=== PATIENT | male | born 1970 | race Caucasian/White ===

== ENCOUNTER 2016-07-29 08:28 | Emergency (ER) | payer OTHER ==
[2016-07-29 08:49] VITALS: BP 171/94
--- NOTE | 2016-07-29 09:13 | UC ---
Respiratory Complaint HPI - HPI Summary HPI Summary: The patient comes in today for: 1. Cough: Onset: 5 days ago. Palliative/provocative: Nyquil helps. Quality: [place]: Lungs. Severity: (back): 3/10 Time: Cough comes and goes. Associated symptoms: Chest pain: None. Dyspnea: "A little labored, my nose is full." Wheezing: Present. Back pain: Present--from coughing? FEver: None. Inhalers: He denies any inhaler use. Cough production: green/yellow Rhinitis: Clear. * - History of Current Complaint Chief Complaint: UCRespiratory Stated Complaint: COUGH CONGESTION Time Seen by Provider: 07/29/16 09:08 Hx Obtained From: Patient - Allergies/Home Medications Allergies/Adverse Reactions: Allergies Allergy/AdvReac Type Severity Reaction Status Date / Time Latex Allergy Swelling Verified 07/29/16 08:48 Home Medications: Home Medications Dextromethorphan-Phenylephrine [Vicks Dayquil Cold & Flu 10-5-325 mg/15Ml] 1 liq PO DAILY PRN 07/29/16 [History Confirmed 07/29/16] Vboqtbidutwzl-[id number] [Nyquil Severe Cold/Flu 5-6.25-10-325 mg/15Ml] 1 dose PO ONCE PRN 07/29/16 [History Confirmed 07/29/16] PMH/Surg Hx/FS Hx/Imm Hx Previously Healthy: Yes Endocrine History Of: Denies: Diabetes, Thyroid Disease, Hyperthyroidism, Hypothyroidism, Dyslipidemia Cardiovascular History Of: Denies: Cardiac Disorders, Hypertension, Pacemaker/ICD, Myocardial Infarction , Congestive Heart Failure, Atrial Fibrillation, Deep Vein Thrombosis, Bleeding Disorders Respiratory History Of: Denies: COPD, Asthma, Bronchitis, Pneumonia, Pulmonary Embolism GI/ History Of: Denies: Gastroesophageal Reflux, Ulcer, Gastrointestinal Bleed, Gall Bladder Disease, Kidney Stones, Diverticulitis, Renal Disease, Urosepsis Neurological History Of: Denies: TIA, CVA, Dementia, Seizures, Migraine Psychological History Of: Denies: Anxiety, Depression, Bipolar Disorder, Schizophrenia, Post Traumatic Stress Disorder Cancer History Of: Denies: Lung Cancer, Colorectal Cancer, Breast Cancer, Prostate Cancer, Cervical Cancer Other History Of: Negative For: HIV, Hepatitis B, Hepatitis C, Anticoagulant Therapy - Surgical History Surgical History: Yes Surgery Procedure, Year, and Place: cholecystectomy ~2014 [facility] - Family History Known Family History: Negative: Cardiac Disease, Hypertension - Social History Occupation: Employed Full-time Alcohol Use: Occasionally Substance Use Type: None Smoking Status (MU): Heavy Every Day Tobacco Smoker Review of Systems Constitutional: Negative Skin: Negative Eyes: Negative ENT: Negative Respiratory: Cough Cardiovascular: Negative Gastrointestinal: Negative Genitourinary: Negative All Other Systems Reviewed And Are Negative: Yes Physical Exam Triage Information Reviewed: Yes Appearance: Well-Appearing, No Pain Distress, Well-Nourished Vital Signs: Initial Vital Signs Temp 98.5 F 07/29/16 08:40 Pulse 84 07/29/16 08:40 Resp 18 07/29/16 08:40 BP 171/94 07/29/16 08:40 Pulse Ox 96 07/29/16 08:40 Vital Signs Reviewed: Yes Eyes: Positive: Conjunctiva Clear. Negative: Discharge ENT: Positive: Hearing grossly normal. Negative: Pharyngeal erythema, Nasal congestion, Nasal drainage, TM bulging, TM dull, TM red, Tonsillar swelling, Tonsillar exudate Dental: Negative: Percussion Tenderness @, Gross Decay/Caries @ Neck: Positive: Supple, Nontender, No Lymphadenopathy. Negative: Nuchal Rigidity Respiratory: Positive: Chest non-tender, No respiratory distress, No accessory muscle use, Rhonchi, Wheezing. Negative: Lungs clear, Crackles Cardiovascular: Positive: RRR, No Murmur Abdomen Description: Positive: Nontender, No Organomegaly, Soft. Negative: Distended, Guarding Musculoskeletal: Positive: Strength Intact, ROM Intact Neurological: Positive: Alert, Muscle Tone Normal Psychological: Positive: Age Appropriate Behavior, Consolable Skin: Negative: rashes, breakdown UC Diagnostic Evaluation - Laboratory O2 Sat by Pulse Oximetry: 96 Respiratory Course/Dx - Differential Dx/Diagnosis Differential Diagnosis/HQI/PQRI: Bronchitis, Laryngitis, Sinusitis Provider Diagnoses: Bronchitis. Bronchospasm. Discharge - Discharge Plan Condition: Stable Disposition: HOME Patient Education Materials: Acute Bronchitis (ED), Bronchospasm (ED) Referrals: NOEMI Martinez [Primary Care Provider] - 1 Week (Please see your primary care provider in about a week. If you don't have a primary care provider, please reference the included sheet of local provider. If you get worse, please be seen sooner.)
== END 2016-07-29 09:40 | disposition home or self-care (01) ==
LOC: UCCORT 08:28
DX: J20.9 Acute bronchitis, unspecified (principal); Z90.49 Acquired absence of other specified parts of digestive tract; F17.210 Nicotine dependence, cigarettes, uncomplicated
CPT/HCPCS: 99202; G0463

== ENCOUNTER 2016-07-31 10:11 | Emergency (ER) | payer OTHER ==
[2016-07-31 10:28] VITALS: BP 133/78
[2016-07-31] MEDS ORDERED: predniSONE TAB* 20 MG PO ONE (10:46)
[2016-07-31] MEDS ORDERED: Albuterol/Ipratropium NEB.SOL* Albuterol 2.5 MG/Ipratropium 0.5 MG 3 ML INH ONE (10:47)
--- NOTE | 2016-07-31 10:47 | UC ---
Respiratory Complaint HPI - HPI Summary HPI Summary: worsening cough and chest congestion over the past 5 days - History of Current Complaint Chief Complaint: UCRespiratory Stated Complaint: RE CK/COUGH, CONGESTION Time Seen by Provider: 07/31/16 10:36 Hx Obtained From: Patient Onset/Duration: Gradual Onset, Lasting Days - 5, Still Present, Worse Since - past 2 days Timing: Constant Severity Initially: Mild Severity Currently: Moderate Pain Intensity: 5 Pain Scale Used: 0-10 Numeric Character: Cough: Productive Aggravating Factors: Deep Breaths, Recumbent Position Alleviating Factors: Nothing Associated Signs And Symptoms: Positive: Dyspnea, Pleuritic Chest Pain, Wheezing , URI - Allergies/Home Medications Allergies/Adverse Reactions: Allergies Allergy/AdvReac Type Severity Reaction Status Date / Time Latex Allergy Swelling Verified 07/31/16 10:20 PMH/Surg Hx/FS Hx/Imm Hx Previously Healthy: Yes Endocrine History Of: Denies: Diabetes, Thyroid Disease, Hyperthyroidism, Hypothyroidism, Dyslipidemia Cardiovascular History Of: Denies: Cardiac Disorders, Hypertension, Pacemaker/ICD, Myocardial Infarction , Congestive Heart Failure, Atrial Fibrillation, Deep Vein Thrombosis, Bleeding Disorders Respiratory History Of: Denies: COPD, Asthma, Bronchitis, Pneumonia, Pulmonary Embolism GI/ History Of: Denies: Gastroesophageal Reflux, Ulcer, Gastrointestinal Bleed, Gall Bladder Disease, Kidney Stones, Diverticulitis, Renal Disease, Urosepsis Neurological History Of: Denies: TIA, CVA, Dementia, Seizures, Migraine Psychological History Of: Denies: Anxiety, Depression, Bipolar Disorder, Schizophrenia, Post Traumatic Stress Disorder Cancer History Of: Denies: Lung Cancer, Colorectal Cancer, Breast Cancer, Prostate Cancer, Cervical Cancer Other History Of: Negative For: HIV, Hepatitis B, Hepatitis C, Anticoagulant Therapy - Surgical History Surgical History: Yes Surgery Procedure, Year, and Place: cholecystectomy ~2014 [facility] - Family History Known Family History: Negative: Cardiac Disease, Hypertension - Social History Occupation: Employed Full-time Lives: With Family Alcohol Use: Occasionally Substance Use Type: None Smoking Status (MU): Heavy Every Day Tobacco Smoker Type: Cigarettes Amount Used/How Often: 1/2 PPD Length of Time of Smoking/Using Tobacco: 20 years Have You Smoked in the Last Year: Yes Household Exposure Type: Cigarettes Cessation Counseling: Counseled 10+ Min Review of Systems Constitutional: Negative Skin: Negative Eyes: Negative ENT: Negative Respiratory: Shortness Of Breath, Cough Cardiovascular: Negative Gastrointestinal: Negative Genitourinary: Negative Motor: Negative Neurovascular: Negative Musculoskeletal: Negative Neurological: Negative Psychological: Negative All Other Systems Reviewed And Are Negative: Yes Physical Exam Triage Information Reviewed: Yes Appearance: Well-Appearing, No Pain Distress, Well-Nourished Vital Signs: Initial Vital Signs Temp 97.9 F 07/31/16 10:21 Pulse 93 07/31/16 10:21 Resp 20 07/31/16 10:21 BP 133/78 07/31/16 10:21 Pulse Ox 94 07/31/16 10:21 Vital Signs Reviewed: Yes Eye Exam: Normal Eyes: Positive: Conjunctiva Clear ENT Exam: Normal ENT: Positive: Normal ENT inspection, Hearing grossly normal, Pharynx normal, TMs normal. Negative: Nasal congestion, Nasal drainage, Tonsillar swelling, Tonsillar exudate, Trismus, Other: Dental Exam: Normal Neck exam: Normal Neck: Positive: Supple, Nontender, No Lymphadenopathy Respiratory Exam: Normal Respiratory: Positive: Chest non-tender, No respiratory distress, No accessory muscle use, Decreased breath sounds, Wheezing Cardiovascular Exam: Normal Cardiovascular: Positive: RRR, No Murmur, Pulses Normal, Brisk Capillary Refill Musculoskeletal Exam: Normal Musculoskeletal: Positive: Strength Intact, ROM Intact, No Edema Neurological Exam: Normal Neurological: Positive: Alert, Muscle Tone Normal, Fatigued Psychological Exam: Normal Skin Exam: Normal UC Diagnostic Evaluation - Laboratory O2 Sat by Pulse Oximetry: 94 Re-Evaluation - Re-Evaluation First Eval Change: Improved - Sats up to 95-96 % increase air movement, wheeze continues, pt reports feeling like he is able to get better air in to lungs Respiratory Course/Dx - Course Course Of Treatment: aerochamber for MDI, Nebulized albuterol, prednisone, finish Zithromax, increase fluids, smoking cesation support education and resources provided - Differential Dx/Diagnosis Differential Diagnosis/HQI/PQRI: Asthma, Bronchitis, Exacerbation Of COPD, Laryngitis, Lower Resp Infection, Sinusitis, Tuberculosis Provider Diagnoses: Acute Bronchospasm, nicotine dependant Discharge - Discharge Plan Condition: Stable Disposition: HOME Prescriptions: Albuterol 2.5MG/3ML (0.083%)* [Ventolin 2.5 MG/3 ML NEB.GEOFFREY*] 2.5 mg INH Q6H PRN #1 box PRN Reason: cough wheeze sob predniSONE TAB* [Deltasone TAB*] 10 mg PO DAILY #20 tab Patient Education Materials: How to Stop Smoking (ED), Cigarette Smoking and Your Health (GEN), How to Use a Metered-Dose Inhaler (ED), How to Use a Nebulizer (ED), Secondhand Smoke Exposure in Children (ED), Bronchospasm (ED) Forms: *Work Release Referrals: Topher Carlisle MD [Medical Doctor] - 1 Week
== END 2016-07-31 11:44 | disposition home or self-care (01) ==
LOC: UCCORT 10:11
DX: J98.01 Acute bronchospasm (principal); Z90.49 Acquired absence of other specified parts of digestive tract; F17.210 Nicotine dependence, cigarettes, uncomplicated; Z71.6 Tobacco abuse counseling
CPT/HCPCS: 99212; A9270-GY; G0463; J7512

== ENCOUNTER 2017-03-25 20:17 | Emergency (ER) | payer OTHER ==
[2017-03-25 20:31] VITALS: BP 144/91
--- NOTE | 2017-03-25 21:43 | UC ---
Abdominal Pain Male HPI - HPI Summary HPI Summary: 46 year old male noted when getting out of car this afternoon sharp pain in belly button area with new bulge seen. + tender to touch, no N/V/ bowel changes. no prior symptoms, h/o annabella, open, attempt lap prior. no h/o herniation - History of Current Complaint Chief Complaint: UCAbdominalPain Stated Complaint: BELLY [place]TON Time Seen by Provider: 03/25/17 21:18 Hx Obtained From: Patient Onset/Duration: Sudden Onset, Lasting Hours Timing: Constant Severity Initially: Moderate Severity Currently: Mild - Allergies/Home Medications Allergies/Adverse Reactions: Allergies Allergy/AdvReac Type Severity Reaction Status Date / Time Latex Allergy Swelling Verified 03/25/17 20:31 Home Medications: Home Medications Varenicline Tartrate [Chantix Starting M... 0.5 mg X 11 & 1 mg X 42] 1 toyin PO DAILY 03/25/17 [History Confirmed 03/25/17] PMH/Surg Hx/FS Hx/Imm Hx Previously Healthy: Yes Other History Of: Negative For: HIV, Hepatitis B, Hepatitis C, Anticoagulant Therapy - Surgical History Surgical History: Yes Surgery Procedure, Year, and Place: cholecystectomy ~2013 [facility] - Family History Known Family History: Negative: Cardiac Disease, Hypertension - Social History Alcohol Use: Occasionally Substance Use Type: None Smoking Status (MU): Heavy Every Day Tobacco Smoker Type: Cigarettes Amount Used/How Often: 1/2 PPD Length of Time of Smoking/Using Tobacco: 20 years Have You Smoked in the Last Year: Yes Household Exposure Type: Cigarettes Review of Systems Gastrointestinal: Abdominal Pain Is Patient Immunocompromised?: No All Other Systems Reviewed And Are Negative: Yes Physical Exam Triage Information Reviewed: Yes Appearance: Well-Appearing, No Pain Distress, Well-Nourished Vital Signs: Initial Vital Signs Temp 98.1 F 03/25/17 20:27 Pulse 88 03/25/17 20:27 Resp 16 03/25/17 20:27 BP 144/91 03/25/17 20:27 Pulse Ox 98 03/25/17 20:27 Eye Exam: Normal Abdomen Description: Positive: No Organomegaly, Soft, Other: - obese, tender over umbilical region, possible defect noted over superior umbilicus, tender to area, possible bulge, easily reducable without complication, no bowel noise over bulge, no erythema. Negative: Bruit, Distended, Guarding Bowel Sounds: Positive: Present Abd Pain Male Course/Dx - Course Course Of Treatment: discussed with patient, follow up with general surgeon/ PCP within 1 week, discuss bowel strangulation s/s, - Differential Dx/Clinical Impression Provider Diagnoses: umbilical herniation Discharge - Discharge Plan Condition: Good Disposition: HOME Patient Education Materials: Umbilical Hernia (ED) Referrals: Topher Carlisle MD [Primary Care Provider] - Additional Instructions: - Follow up with primary physician or general surgeon within 1-2 weeks - Report to ER with increased abdominal pain, bulge that cannot be reduced by lying down or gently pushing, no bowel movements, nausea/ vomiting - Avoid constipation- increase fluid intake, fiber - no heavy lifting, pushing pulling > 30 pounds
== END 2017-03-25 21:45 | disposition home or self-care (01) ==
LOC: UCCORT 20:17
DX: K42.9 Umbilical hernia without obstruction or gangrene (principal); Z91.040 Latex allergy status; F17.210 Nicotine dependence, cigarettes, uncomplicated
CPT/HCPCS: 99211; G0463

== ENCOUNTER 2017-10-18 14:17 | Emergency (ER) | payer OTHER ==
[2017-10-18] MEDS ORDERED: Dexamethasone TAB* 4 MG PO ONE (15:37)
[2017-10-18] MEDS ORDERED: Ibuprofen ADULT LIQ* 600 MG/30 ML UDC PO ONE (15:38)
--- NOTE | 2017-10-18 15:58 | UC ---
UC General HPI - HPI Summary HPI Summary: Patient is complaining of 2-3 day history of sore throat, swollen tonsils, headache along with fever and chills. He states that his joints were aching but that is essentially gone. - History of Current Complaint Chief Complaint: UCHeadache Stated Complaint: THROAT COMPLAINT Time Seen by Provider: 10/18/17 15:25 Hx Obtained From: Patient Onset/Duration: Gradual Onset Timing: Constant Pain Intensity: 6 - Allergy/Home Medications Allergies/Adverse Reactions: Allergies Allergy/AdvReac Type Severity Reaction Status Date / Time latex Allergy Swelling Verified 10/18/17 15:14 Home Medications: Home Medications Acetaminophen [Acetaminophen Extra Strength] 1,500 mg PO ONCE PRN 10/18/17 [ History Confirmed 10/18/17] Dextromethorphn/Acetaminoph/Cp [Vicks Nyquil Cold & Flu N] 1 liq PO ONCE PRN [History Confirmed 10/18/17] Ibuprofen TAB* [Motrin TAB* 400 MG] 400 mg PO PC PRN 10/18/17 [History Confirmed 10/18/17] PMH/Surg Hx/FS Hx/Imm Hx Previously Healthy: Yes Other History Of: Negative For: HIV, Hepatitis B, Hepatitis C, Anticoagulant Therapy - Surgical History Surgical History: Yes Surgery Procedure, Year, and Place: cholecystectomy ~[facility] - Family History Known Family History: Negative: Cardiac Disease, Hypertension - Social History Occupation: Employed Full-time Lives: With Family Alcohol Use: Occasionally Substance Use Type: None Smoking Status (MU): Former Smoker Type: Cigarettes Amount Used/How Often: 1/2 PPD Length of Time of Smoking/Using Tobacco: 20 years Have You Smoked in the Last Year: Yes - 03/2017 Household Exposure Type: Cigarettes - Immunization History Vaccination Up to Date: Yes Review of Systems Constitutional: Fever, Chills Skin: Negative Eyes: Negative ENT: Sore Throat Respiratory: Negative Cardiovascular: Negative Gastrointestinal: Negative Genitourinary: Negative Motor: Negative Neurovascular: Negative Musculoskeletal: Arthralgia Neurological: Headache Psychological: Negative Is Patient Immunocompromised?: No All Other Systems Reviewed And Are Negative: Yes Physical Exam Triage Information Reviewed: Yes Appearance: Well-Appearing Vital Signs: Initial Vital Signs Temp 99.1 F 10/18/17 15:02 Pulse 116 10/18/17 15:02 Resp 18 10/18/17 15:02 BP 134/101 10/18/17 15:02 Pulse Ox 97 10/18/17 15:02 Vital Signs Reviewed: Yes Eyes: Positive: Conjunctiva Clear ENT: Positive: Pharyngeal erythema, TMs normal, Tonsillar swelling, Tonsillar exudate, Uvula midline. Negative: Nasal congestion, Nasal drainage, Trismus, Muffled voice, Hoarse voice Neck: Positive: Supple, Tenderness @ - peritonsilar nodes with tenderness. Respiratory: Positive: Lungs clear, Normal breath sounds Cardiovascular: Positive: RRR, No Murmur Abdomen Description: Positive: Nontender, No Organomegaly, Soft, Distended, Guarding Bowel Sounds: Positive: Present Musculoskeletal: Positive: ROM Intact, No Edema Neurological: Positive: Alert Psychological: Positive: Age Appropriate Behavior Skin Exam: Normal Course/Dx - Course Course Of Treatment: non toxic and no concern for peritonsiolar abscess. + strep throat. will repeat BP, no hx HTN. Repeat BP is WNL. - Differential Dx - Multi-Symptom Provider Diagnoses: strep throat Discharge - Sign-Out/Discharge Documenting (check all that apply): Discharge/Admit/Transfer - Discharge Plan Condition: Stable Disposition: HOME Prescriptions: Amoxicillin PO (*) [Amoxicillin 875 MG (*)] 875 mg PO BID #20 tab Patient Education Materials: Strep Throat (DC) Referrals: Topher Carlisle MD [Primary Care Provider] - 5 Days - Billing Disposition and Condition Condition: STABLE Disposition: Home
[2017-10-18 16:08] VITALS: BP 117/74
== END 2017-10-18 16:11 | disposition home or self-care (01) ==
LOC: UCCORT 14:17
DX: J02.0 Streptococcal pharyngitis (principal); F17.210 Nicotine dependence, cigarettes, uncomplicated
CPT/HCPCS: 87651; 99212; A9270-GY; G0463; J8540

== ENCOUNTER 2017-11-23 13:34 | Emergency (ER) | payer OTHER ==
[2017-11-23 14:04] VITALS: BP 129/93
--- NOTE | 2017-11-23 14:42 | UC ---
Skin Complaint HPI - HPI Summary HPI Summary: patient was clearing brus, next day had blistered rash on arm and right earlobe - History of Current Complaint Chief Complaint: UCSkin Time Seen by Provider: 11/23/17 14:18 Stated Complaint: SKIN COMPLAINT Hx Obtained From: Patient Onset/Duration: Sudden Onset Timing: Constant Onset Severity: Mild Current Severity: Moderate Pain Intensity: 0 Location: Diffuse Character: Pruritus, Raised, Painful - Allergy/Home Medications Allergies/Adverse Reactions: Allergies Allergy/AdvReac Type Severity Reaction Status Date / Time latex Allergy Swelling Verified 11/23/17 13:57 Review of Systems Constitutional: Negative Skin: Rash Eyes: Negative ENT: Negative Respiratory: Negative Cardiovascular: Negative Gastrointestinal: Negative Genitourinary: Negative Motor: Negative Neurovascular: Negative Musculoskeletal: Negative Neurological: Negative Psychological: Negative Is Patient Immunocompromised?: No All Other Systems Reviewed And Are Negative: Yes PMH/Surg Hx/FS Hx/Imm Hx Previously Healthy: Yes Other History Of: Negative For: HIV, Hepatitis B, Hepatitis C, Anticoagulant Therapy - Surgical History Surgical History: Yes Surgery Procedure, Year, and Place: cholecystectomy ~2013 [facility] - Family History Known Family History: Negative: Cardiac Disease, Hypertension - Social History Alcohol Use: Rare Substance Use Type: None Smoking Status (MU): Current Some Day Smoker Type: Cigarettes Amount Used/How Often: 2 cig/weekly Length of Time of Smoking/Using Tobacco: 20 years Have You Smoked in the Last Year: Yes - 03/2017 Household Exposure Type: Cigarettes - Immunization History Vaccination Up to Date: Yes Physical Exam Triage Information Reviewed: Yes Appearance: Well-Appearing, Well-Nourished, Pain Distress Vital Signs: Initial Vital Signs Temp 97.9 F 11/23/17 13:58 Pulse 104 11/23/17 13:58 Resp 20 11/23/17 13:58 BP 129/93 11/23/17 13:58 Pulse Ox 98 11/23/17 13:58 Eye Exam: Normal ENT Exam: Normal Dental Exam: Normal Respiratory Exam: Normal Respiratory: Positive: Chest non-tender, Lungs clear, Normal breath sounds Cardiovascular Exam: Normal Cardiovascular: Positive: RRR, No Murmur, Pulses Normal Abdominal Exam: Normal Abdomen Description: Positive: Nontender, No Organomegaly, Soft Bowel Sounds: Positive: Present Musculoskeletal Exam: Normal Neurological Exam: Normal Psychological Exam: Normal Skin: Positive: significant lesion(s) - multiple blisters, draining clear fluid , from wrist to shoulder, and on earlobe Course/Dx - Course Course Of Treatment: hx obtained, exam performed ,meds reviewed, treated for poisionivy - Differential Diagnoses - Skin Complaint Differential Diagnoses: Allergic Reaction, Cellulitis, Contact Dermatitis, Poison Maggie, Poison [place] - Diagnoses Provider Diagnoses: poison maggie Discharge - Sign-Out/Discharge Documenting (check all that apply): Patient Departure - Discharge Plan Condition: Stable Disposition: HOME Prescriptions: predniSONE [Prednisone 20 MG TAB] 20 mg PO DAILY #18 tablet Triamcinolone 0.1% OINT(NF) [Kenalog 0.1% OINT(NF)] 1 applic .SEE ORDER BID #60 gm Patient Education Materials: Poison Maggie (ED) Referrals: Topher Carlisle MD [Primary Care Provider] - Additional Instructions: 1. take the medication as prescribed. 2. keeparea covered until blisters dry up 3. follow up if you get a fever, purulent drainage, increased swelling of redness of the arm. - Billing Disposition and Condition Condition: STABLE Disposition: Home
== END 2017-11-23 14:51 | disposition home or self-care (01) ==
LOC: UCCORT 13:34
DX: L23.7 Allergic contact dermatitis due to plants, except food (principal); T63.791A Toxic effect of contact with other venomous plant, accidental (unintentional), initial encounter; Y92.9 Unspecified place or not applicable; F17.210 Nicotine dependence, cigarettes, uncomplicated
CPT/HCPCS: 99212; G0463

== ENCOUNTER 2018-02-17 09:26 | Emergency (ER) | payer OTHER ==
[2018-02-17 09:49] VITALS: BP 142/84
--- NOTE | 2018-02-17 10:03 | UC ---
Eye Complaint HPI - HPI Summary HPI Summary: right eye pain x 1 day Pain and swelling of the right lower eyelid , tender to touch , feels a bump under the right lower eyelid no change in vision , no eye discharge - History of Current Complaint Chief Complaint: UCEye Stated Complaint: RIGHT EYE SWELLING Time Seen by Provider: 02/17/18 09:54 Hx Obtained From: Patient Onset/Duration: Gradual Onset, Lasting Days - 1, Still Present Timing: Constant Severity Initially: Moderate Severity Currently: Moderate Pain Intensity: 0 Location of Injury: Eye Lid (lower) - right side Character: Dull Aggravating Factor(s): Blinking Alleviating Factor(s): Nothing Associated Signs And Symptoms: Negative: Photophobia, Drainage (Clear), Drainage (Purulent), Vision Impairment Bilateral, Vision Impairment Right, Vision Impairment Left, Fever Related History: Similar Episode - stye one year ago - Allergies/Home Medications Allergies/Adverse Reactions: Allergies Allergy/AdvReac Type Severity Reaction Status Date / Time latex Allergy Swelling Verified 02/17/18 09:38 Home Medications: Home Medications Phendimetrazine Tartrate 35 mg PO TID 02/17/18 [History Confirmed 02/17/18] PMH/Surg Hx/FS Hx/Imm Hx Neurological History: Migraine Other History Of: Negative For: HIV, Hepatitis B, Hepatitis C, Anticoagulant Therapy - Surgical History Surgical History: Yes Surgery Procedure, Year, and Place: cholecystectomy ~2013 [facility] - Family History Known Family History: Negative: Cardiac Disease, Hypertension - Social History Alcohol Use: Rare Substance Use Type: None Smoking Status (MU): Current Some Day Smoker Type: Cigarettes Amount Used/How Often: 1/2 Length of Time of Smoking/Using Tobacco: 20 years Have You Smoked in the Last Year: Yes - 03/2017 Household Exposure Type: Cigarettes - Immunization History Vaccination Up to Date: Yes Review of Systems Constitutional: Negative Skin: Negative ENT: Negative Respiratory: Negative Cardiovascular: Negative Is Patient Immunocompromised?: No All Other Systems Reviewed And Are Negative: Yes Physical Exam Triage Information Reviewed: Yes Appearance: Well-Appearing, No Pain Distress, Well-Nourished Vital Signs: Initial Vital Signs Temp 98.2 F 02/17/18 09:42 Pulse 93 02/17/18 09:42 Resp 18 02/17/18 09:42 BP 142/84 02/17/18 09:42 Pulse Ox 98 02/17/18 09:42 Vital Signs Reviewed: Yes Eye Exam: Normal Eyes: Positive: Conjunctiva Clear, Other: - stye right lower eyelid. Negative: Conjunctiva Inflamed, Discharge Neck: Positive: Supple, Nontender, No Lymphadenopathy Respiratory: Positive: Chest non-tender, Lungs clear, Normal breath sounds Cardiovascular: Positive: RRR, No Murmur, Pulses Normal Skin Exam: Normal Eye Complaint Course/Dx - Differential Dx/Diagnosis Provider Diagnoses: stye right lower eyelid Discharge - Sign-Out/Discharge Documenting (check all that apply): Patient Departure All imaging exams completed and their final reports reviewed: No Studies - Discharge Plan Condition: Stable Disposition: HOME Prescriptions: DOXYcycline CAP(*) [DOXYcycline 100MG CAP(*)] 100 mg PO BID #20 cap Patient Education Materials: [place] (ED) Referrals: Topher Carlisle MD [Primary Care Provider] - If Needed - Billing Disposition and Condition Condition: STABLE Disposition: Home
== END 2018-02-17 10:09 | disposition home or self-care (01) ==
LOC: UCCORT 09:26
DX: H00.012 Hordeolum externum right lower eyelid (principal); F17.210 Nicotine dependence, cigarettes, uncomplicated; Z91.040 Latex allergy status
CPT/HCPCS: 99212; G0463